=== PATIENT | male | born 1955 | race Caucasian/White ===

== ENCOUNTER 2019-07-13 09:56 | Inpatient (IN) ==
--- NOTE | 2019-06-07 15:52 | PAT Medication Instructions ---
Medication Instructions Date of Service June 07, 2019 Home Medications ascorbic acid (vitamin C) [Vitamin C] 1 g PO DAILY aspirin [Aspirin Low Dose] 81 mg PO QAM atorvastatin [Lipitor] 20 mg PO QAM coenzyme Q10 [CoQ-10] 100 mg PO DAILY hydrocodone-acetaminophen 1 tab PO BID PRN multivitamin 1 tab PO DAILY naproxen sodium [Aleve] 220 mg PO BID PRN omega 4-rpt-zpd-fish oil [Fish Oil] 1 cap PO DAILY tamsulosin [Flomax] 0.4 mg PO BID ASK your surgeon for instructions naproxen sodium [Aleve] 220 mg PO BID PRN ASK your prescriber and surgeon aspirin [Aspirin Low Dose] 81 mg PO QAM STOP taking 2 weeks before surgery (or as soon as possible if surgery is within 2 weeks) coenzyme Q10 [CoQ-10] 100 mg PO DAILY omega 8-txh-yit-fish oil [Fish Oil] 1 cap PO DAILY DO NOT take the morning of surgery ascorbic acid (vitamin C) [Vitamin C] 1 g PO DAILY multivitamin 1 tab PO DAILY Take morning of surgery With a small sip of water, OTHERWISE NOTHING TO EAT OR DRINK AFTER MIDNIGHT: atorvastatin [Lipitor] 20 mg PO QAM hydrocodone-acetaminophen 1 tab PO BID PRN (okay to take up to 4 hours prior to surgery if needed) tamsulosin [Flomax] 0.4 mg PO BID Take evening before surgery hydrocodone-acetaminophen 1 tab PO BID PRN (if needed) tamsulosin [Flomax] 0.4 mg PO BID Other Notes If you have any questions please call us at [phone] or [phone] or [phone] or [phone]
--- NOTE | 2019-06-08 08:09 | Anesthesiology Consultation ---
Date of Service June 08, 2019 Assessment & Plan (1) Encounter for pre-operative examination: - Awaiting review preop testing (labs, EKG, CXR). - Awaiting labs done 06/07 at [facility] ([facility]). Chart Review Chart Review: Pending: Refer to Additional Notes / Consult section (pending preop testing (labs, EKG, CXR)) and Patient seen in Pre Admission Testing Teaching & Discussion Pre-Anesthesia Teaching/Discussion Notes: Instructed NPO after midnight before surgery,except medications with 15 cc of water. Medication instructions pro vided according to the PAT guidelines. History Surgery Operation Date: 07/13/19 13:00 Proposed Procedures p Left Total Shoulder Arthroplasty - Ashkan Lara, Height/Weight Height: 6 ft Weight: 88.6 kg Allergies Allergy/AdvReac Type Severity Reaction Status Date / Time Penicillins Allergy Unknown rash - as Verified 06/06/19 12:20 a child Medications Home Medications Medication Instructions Recorded Confirmed Last Taken ascorbic acid (vitamin C) [Vitamin 1 g PO DAILY 06/06/19 06/06/19 Unknown C] aspirin [Aspirin Low Dose] 81 mg PO QAM 06/06/19 06/06/19 Unknown atorvastatin [Lipitor] 20 mg PO QAM 06/06/19 06/06/19 Unknown coenzyme Q10 [CoQ-10] 100 mg PO DAILY 06/06/19 06/06/19 Unknown hydrocodone-acetaminophen 1 tab PO BID PRN 06/06/19 06/06/19 Unknown multivitamin 1 tab PO DAILY 06/06/19 06/06/19 Unknown naproxen sodium [Aleve] 220 mg PO BID PRN 06/06/19 06/06/19 Unknown omega 5-ybb-hrd-fish oil [Fish Oil] 1 cap PO DAILY 06/06/19 06/06/19 Unknown tamsulosin [Flomax] 0.4 mg PO BID 06/06/19 06/06/19 Unknown Past Medical History Medical History BPH (benign prostatic hyperplasia) Diverticular disease Hyperlipidemia Osteoarthritis Exercise / Class Metabolic Activity II 4-5 Yardwork/Stairs/Walk up hill Past Family History Family History Other No pertinent family history Past Surgical History Surgical History History of surgical amputation of finger partial left fourth digit amputation History of colonoscopy History of tonsillectomy S/P inguinal hernia repair left Past Anesthesia History No Hx of Anesthesia Complications and No Family Hx of Anesthesia Complications History of PONV No Hx of PONV and No Hx of Motion Sickness Social History Smoking Status: Former smoker tobacco type: cigarettes Do You Dip or Chew Tobacco: No Smoking End Date: Quit 2008; hx 1ppd x 25 years Hx Alcohol Use: Yes Alcohol type: beer alcohol intake frequency: a few times a month Hx Substance Use: Yes (a couple times a month) substance use type: marijuana Last Used Substance: Days (ago) Last Used Substance Other:: 06/02/19 (recreational)- advised Review of Systems Patient denies chest pain, shortness of breath, dyspnea on exertion, reflux, cough, wheezing, palpitations. Physical Exam Vital Signs VITALS BP 138/77 P77 TEM 97.8P SP02 97%RA RESP 16 PHYSICAL Full neck and c-spine range of motion. Full TMJ range of motion. TMD 3 finger breaths Mallampati Score 3 Dentition: intact, upper front permanent bridge Lungs: clear throughout to auscultation Cardiac: regular rate and rhythm, no murmurs noted Spine: normal Carotid arteries: negative bruit Extremities: left forth digit amputation
--- NOTE | 2019-06-08 09:11 | XRay Report ---
XR chest Pre-admission PA/Lat HISTORY: 64 years-old Male pat preoperative exam. No acute chest complaints COMPARISON: None available TECHNIQUE: PA and lateral views of the chest FINDINGS: Cardiomediastinal and hilar silhouettes are within normal limits. There is no pneumothorax, pleural e ffusion, focal airspace consolidation or overt pulmonary edema. There is a cluster of at least 4 tria ngular radiodensities which project over the left upper lobe measuring up to 10 mm. Additionally, the re are a few nodular foci of the left lung base measuring up to 3 mm which may be secondary to summat ion density. Bones of the chest appear grossly intact. IMPRESSION: 1. No acute process. 2. Cluster of triangular radiodensities projecting over the left upper lung measuring up to 10 mm, po ssibly external to the patient. Correlate with prior imaging. The above report was generated using voice recognition software. It may contain grammatical, syntax o r spelling errors. Electronically signed by: Josias Montgomery M.D. 06/08/2019 9:10 AM
[2019-06-08 09:41] LABS: Basophils # (auto) 0.02 K/uL (0-0.2); Basophils % (auto) 0.4 %; Eosinophils # (auto) 0.12 K/uL (0-0.5); Eosinophils % (auto) 2.1 %; Hematocrit (blood only) 43.5 % (42-52); Hemoglobin 14.9 g/dL (14.0-18.0); Immature Granulocytes # (auto) 0.01 K/uL (0.00-0.02); Immature Granulocytes % (auto) 0.2 %; Lymphocytes % (auto) 40.9 %; Mean Corpuscular Hemoglobin 29.4 pg (25-34); Mean Corpuscular Hgb Conc 34.3 g/dL (32-36); Mean Platelet Volume 10.5 fL (7.4-10.4); Monocytes # (auto) 0.48 K/uL (0.11-0.59); Monocytes % (auto) 8.5 %; Neutrophils % (auto) 47.9 %; Platelet Count 217 K/uL (130-400); RDW Coefficient of Variation 14.1 % (11.5-14.5); RDW Standard Deviation 43.7 fL (36.4-46.3); Red Blood Count 5.06 M/uL (4.7-6.1); White Blood Count 5.63 K/uL (4.8-10.8)
[2019-06-08 09:55] LABS: Partial Thromboplastin Time 27.7 Seconds (21.0-31.0); Prothrombin Time 10.6 Seconds (9.0-12.0)
--- NOTE | 2019-07-12 14:50 | History & Physical Report ---
Date of Service July 12, 2019 Assessment & Plan (1) Osteoarthritis of left shoulder: We will proceed with a left total shoulder arthroplasty. Postoperatively he will be placed in a sling and kept overnight for postoperative medical management. He has not chosen where he would like to go to physical therapy yet. Present on Admission?: Yes History of Present Illness Chief Complaint: Primary osteoarthritis of the left shoulder Primary Care Provider: Cathy Ingram is a pleasant 64-year-old male who is been having a several year history of increasing bilateral shoulder pain. His left is worse than his right. X- rays and clinical examination have been diagnostic for primary osteoarthritis of both shoulders. After failing conservative treatment, he has elected to proceed with a left total shoulder arthroplasty. Allergies Allergy/AdvReac Type Severity Reaction Status Date / Time Penicillins Allergy Unknown rash - as Verified 06/06/19 12:20 a child Home Medications Home Medications Medication Instructions Recorded Confirmed Type ascorbic acid (vitamin C) [Vitamin 1 g PO DAILY 06/06/19 06/06/19 History C] aspirin [Aspirin Low Dose] 81 mg PO QAM 06/06/19 06/06/19 History atorvastatin [Lipitor] 20 mg PO QAM 06/06/19 06/06/19 History coenzyme Q10 [CoQ-10] 100 mg PO DAILY 06/06/19 06/06/19 History hydrocodone-acetaminophen 1 tab PO BID PRN 06/06/19 06/06/19 History multivitamin 1 tab PO DAILY 06/06/19 06/06/19 History naproxen sodium [Aleve] 220 mg PO BID PRN 06/06/19 06/06/19 History omega 1-csv-muu-fish oil [Fish Oil] 1 cap PO DAILY 06/06/19 06/06/19 History tamsulosin [Flomax] 0.4 mg PO BID 06/06/19 06/06/19 History Past Med/Surg History Medical History (Updated 07/12/19 @ 14:50 by Ashkan Lara DO) BPH (benign prostatic hyperplasia) Diverticular disease Hyperlipidemia Osteoarthritis Surgical History (Updated 06/08/19 @ 08:21 by Jeni Sanchez) History of colonoscopy History of surgical amputation of finger partial left fourth digit amputation History of tonsillectomy S/P inguinal hernia repair left Family History Other No pertinent family history Social History Preferred Language: Kazakh Ride Operator Required: No Beliefs That Will Affect Care: None Current Living Situation: Spouse Feels Safe at Home: Yes Smoking Status: Former smoker Tobacco Type: cigarettes ; Second Hand Exposure: Yes (as a child) ; Hx Alcohol Use: Yes Alcohol type: beer Hx Substance Use: Yes (a couple times a month) substance use type: marijuana Last Used Substance: Days (ago) Review of Systems All systems reviewed & are unremarkable except as noted in HPI & below Physical Exam Constitutional: WD/WN, vitals as above Eyes: PERRL, conjunctivae normal, anicteric sclerae ENMT: external ear and nose normal, oropharynx normal Neck: trachea midline, no thyromegaly Respiratory: normal respiratory effort Cardiovascular: RRR, no murmur, no edema Gastrointestinal (Abdomen): normal bowel sounds, soft, nontender, no hepatosplenomegaly Musculoskeletal: Physical examination of the left shoulder reveals decreased range of motion and crepitis throughout. There is good strength with full can testing and external rotation. There is tenderness palpation along the anterior glenohumeral joint line. The right upper extremity is neurovascularly intact. Psychiatric: A+Ox3, euthymic affect Results & Data Diagnostic Findings Radiographs of the left shoulder show osteoarthritis of the glenohumeral joint. There is joint space narrowing, osteophyte formation, and [id number] articulation.
[~2019-07-13 09:56] MED LIST: ACETAMINOPHEN 500 MG TAB PO SCH; BUPIVACAINE 0.5 % 5 MG/1 ML PF 10ML VIAL ONE; CEFAZOLIN 2000MG 2,000 MG/15 ML SYR IV SCH; DEXAMETHASONE SOD INJ 4 MG/ML VIAL ONE; FAMOTIDINE 20 MG TAB PO SCH; GABAPENTIN 300 MG CAP PO SCH; GLYCOPYRROLATE 0.2 MG/ML VIAL ONE; LR 15ML/HR IV SCH; LR 60ML/HR IV SCH; MIDAZOLAM HCL 1 MG/ML 2ML VIAL ONE; NEOSTIGMINE METHYLSULFATE 5 MG/5 ML SYR ONE; ONDANSETRON INJ 2 MG/ML 2 ML VIAL ONE; PROPOFOL IV EMULSION 10 MG/ML 20 ML VIAL IV ONE; ROPIVACAINE 0.5% 5 MG/ML 30 ML VIAL ONE; ROPIVACAINE 0.5% HCL/PF 150 MG, BUPIVACAINE 0.5% MPF 30 ML, EPINEPHrine 30MG/30ML (OR U... INSTIL SCH; TRANEXAMIC ACID 1,000 MG **IV Intra-op IV SCH; TRANEXAMIC ACID 1,000 MG **IV Pre-op IV SCH; fentaNYL citrate 100 MCG/2 ML VIAL ONE
[2019-07-13] MEDS ORDERED: ORTHO JOINT ANESTHETIC ONE (10:43)
--- NOTE | 2019-07-13 10:45 | History & Physical Bridge Note ---
Date of Service July 13, 2019 History & Physical Bridge Note I have examined the patient, reviewed the History & Physical and in the interval since the performance of the History & Physical I have noted the following changes of clinical significance: no changes noted
[2019-07-13] MEDS ORDERED: ATROPINE SULFATE 0.1 MG/ML 10ML SYR IV PRN (10:57)
[2019-07-13] MEDS ORDERED: fentaNYL citrate 100 MCG/2 ML VIAL IV PRN (10:57)
[2019-07-13] MEDS ORDERED: ONDANSETRON INJ 2 MG/ML 2 ML VIAL IV PRN ×2 (10:57→14:37)
[2019-07-13] MEDS ORDERED: ePHEDrine sulfate 50 MG/ML AMP IV PRN (10:57)
[2019-07-13] MEDS ORDERED: DEXAMETHASONE SOD INJ 4 MG/ML VIAL ONE (12:13)
[2019-07-13] MEDS ORDERED: ROCURONIUM BROMIDE 10 MG/ML 5 ML VIAL ONE (12:21)
[2019-07-13] MEDS ORDERED: fentaNYL citrate 100 MCG/2 ML VIAL ONE (12:40)
[2019-07-13] MEDS ORDERED: PHENYLEPHRINE 100MCG/ML 5ML SYR ONE (12:44)
--- NOTE | 2019-07-13 13:00 | Operative Report ---
PG Post Operative Report Pre & Post Diagnosis Operation Date: 07/13/19 12:10 Pre-Op Diagnosis: Left Shoulder Degenerative Joint Disease Post-Op Diagnosis: Left Shoulder Degenerative Joint Disease I identified the patient and participated in the time-out.: Yes Procedure Operation Date: 07/13/19 12:10 Actual Procedures p Left Total Shoulder Arthroplasty, Cemented(Left) - Ashkan Lara DO Surgeon Ashkan Lara DO Sider Mechanic Ashkan Flores PAC Estimated Blood Loss 250 Findings Consistent with Post-Op Diagnosis Specimens Left humeral head Complications none Disposition Disposition: Recovery Room Indications Juan Jose is a 64-year-old male who presented my office with chronic increasing left shoulder pain. X-rays and clinical examination were diagnostic for primary osteoarthritis of the left shoulder. After failing conservative treatment, he elected to proceed with a left total shoulder arthroplasty. Description of Procedure Implants used: I used a Biomet Comprehensive total shoulder arthroplasty system with a size 12 press fit mini humeral stem, a size 46 x 21 eccentric humeral head, and a medium size glenoid with a Regenerex peg. The glenoid was cemented in place with Palacos G cement. The patient arrived at [facility] for the above procedure. There were seen in the preoperative holding area and the operative extremity was identified and signed. They were given a preoperative antibiotic and an interscalene nerve block. They were taken back to the operating room, laid on table in supine position, and put under general anesthesia. They were then put into the beachchair position. The shoulder was then prepped and draped in sterile fashion. A timeout was done and the patient and the operative extremity was properly identified. A deltopectoral approach was used. Dissection was taken down through the fascia and the deltoid was retracted laterally and the conjoined tendon was retracted medially. The anterior shoulder was exposed. The long head of the biceps tendon was tenodesed to the upper border of the pectoralis major. The subscapularis was then released off the lesser tuberosity with a centimeter of cuff tissue remaining. The inferior capsule was released and the humeral head was dislocated. The rotator cuff was inspected and intact. A canal finding reamer was sent down the center of the humeral canal. Sequential reaming up to a size 12 reamer was done. Offset reamer a proximal humeral resection guide was placed. The proximal humerus was resected at 135 of inclination and 30 of retroversion. Inferior osteophytes were then removed and the glenoid was exposed. Time was spent doing an appropriate labral release. A [employer] signature guide was then attached onto the anterior rim of the glenoid. A 3.2 mm Steinmann pin was then placed in the total shoulder arthroplasty hole. The glenoid was then reamed with a propeller reamer. The central post cutter was then used to prepare for the central boss. The cannulated peripheral peg drill guide was then placed and 3 peg holes were drilled. The final size medium glenoid was then cemented in place with Palacos G cement. Surrounding soft tissues were then injected with 100 cc of an orthopedic pain control cocktail. Once cement had dried the proximal humerus was once again exposed. Sequential broaching of the humerus up to a size 12 broach was done. Off that broach a size 46 x 21 eccentric humeral head was trialed. The shoulder was then reduced, brought through a full range of motion and felt to be stable. The shoulder was then dislocated and the broach was removed. The final size 12 mini humeral stem implant was then impacted into place. A size 46 x 21 eccentric humeral head was then impacted onto the humeral stem. The shoulder was then reduced and once again brought through a full range of motion and felt to be stable. The subscapularis was then tenodesed back to the lesser tuberosity with transosseous FiberWire sutures and side to side sutures with the arm in 45 of external rotation. 2 sutures were placed in the lateral rotator interval. A dilute betadyne lavage was then done for 3 minutes. The joint was then irrigated with normal saline solution. Hemostasis was obtained. The skin was then closed with 2-0 Vicryl, 3-0V lock suture, and joanna. A soft dressing was placed as well as a regular arm sling. The patient was then extubated and transferred to a hospital bed. There were taken to the postanesthesia care unit in stable condition. The tolerated the procedure well. I attest to the content of the Intraoperative Record and any orders documented therein. Any exceptions are noted below.
[2019-07-13] MEDS ORDERED: PROPOFOL IV EMULSION 10 MG/ML 20 ML VIAL IV ONE (13:26)
--- NOTE | 2019-07-13 13:58 | Anesthesiology Progress Note ---
Date of Service July 13, 2019 Anesthesia Post Procedure Vital Signs Vital Signs: Temp Pulse Pulse Resp BP Pulse Ox 07/13/19 13:55 97.9 F 69 21 122/69 95 07/13/19 13:45 66 22 114/71 100 07/13/19 13:35 67 19 127/73 99 07/13/19 13:29 96.8 F L 78 22 130/71 96 07/13/19 10:20 98.4 F 77 20 183/99 H 96 Transfer of Care Handoff Completed per policy Notes Mental Status: alert / awake / arousable and participated in evaluation Patient Amnestic to Procedure: Yes Nausea / Vomiting: adequately controlled Pain: adequately controlled Airway Patency, RR, SpO2: stable & adequate BP & HR: stable & adequate Hydration State: stable & adequate Anesthetic Complications: no major complications apparent and Pt Satisfied with anesthetic care
--- NOTE | 2019-07-13 14:16 | XRay Report ---
XR shoulder LT min 2V routine CLINICAL HISTORY: 64 years-old Male presenting with Post shoulder surgery. TECHNIQUE: Frontal and lateral views of the left shoulder were obtained. COMPARISON: None. FINDINGS: Post-surgical changes of left shoulder arthroplasty. Expected soft tissue emphysema and skin joanna in place. Acromioclavicular joint intact. No acute fracture or malalignment. Few bandlike opacities a t the left lung base. IMPRESSION: 1. Expected post-surgical changes of left shoulder arthroplasty. 2. Left basilar atelectasis or scarring. Electronically signed by: Fernando Gracia M.D. 07/13/2019 2:14 PM
[2019-07-13] MEDS ORDERED: HYDROmorphone INJ 0.5 MG/0.5 ML SYR IV PRN (14:37)
[2019-07-13] MEDS ORDERED: MAGNESIUM HYDROXIDE SUSP 30 ML UDC PO PRN (14:37)
[2019-07-13] MEDS ORDERED: OXYCODONE HCL IR 5 MG TAB (IMMEDIATE RELEASE) PO PRN (14:37)
[2019-07-13] MEDS ORDERED: NALOXONE HCL 0.4 MG/1 ML VIAL/CARP IV PRN (14:37)
[2019-07-13] MEDS ORDERED: BISACODYL 10 MG SUPP PR PRN (14:37)
[2019-07-13] MEDS ORDERED: METOCLOPRAMIDE HCL INJ 5 MG/ML 2 ML VIAL IV PRN (14:37)
[2019-07-13] MEDS: SODIUM CHLORIDE 0.9% 1000ML 1,000 ML IV SCH (15:39)
[2019-07-13] MEDS: ACETAMINOPHEN 500 MG TAB PO SCH ×2 (15:44→21:59)
[2019-07-13] MEDS: KETOROLAC TROMETHAMINE 15 MG/ML VIAL IV SCH ×3 (15:44→23:53)
[2019-07-13] MEDS: CEFAZOLIN 2000MG 2,000 MG/15 ML SYR IV SCH (18:46)
[2019-07-13] MEDS: TAMSULOSIN HCL 0.4 MG CAP PO SCH (20:44)
[2019-07-13] MEDS: DOCUSATE SODIUM 100 MG CAP PO SCH (20:44)
[2019-07-13] MEDS ORDERED: SENNA 8.6 MG TAB PO SCH (21:00)
[2019-07-14] MEDS: SODIUM CHLORIDE 0.9% 1000ML 1,000 ML IV SCH (01:22)
[2019-07-14] MEDS: CEFAZOLIN 2000MG 2,000 MG/15 ML SYR IV SCH (03:57)
[2019-07-14] MEDS: ACETAMINOPHEN 500 MG TAB PO SCH (05:33)
[2019-07-14] MEDS: KETOROLAC TROMETHAMINE 15 MG/ML VIAL IV SCH (05:33)
[2019-07-14 05:51] LABS: Eosinophils # (auto) 0.02 K/uL (0-0.5); Eosinophils % (auto) 0.2 %; Hematocrit (blood only) 37.5 % (42-52); Hemoglobin 12.8 g/dL (14.0-18.0); Immature Granulocytes # (auto) 0.02 K/uL (0.00-0.02); Immature Granulocytes % (auto) 0.2 %; Lymphocytes # (auto) 1.75 K/uL (1.2-3.4); Lymphocytes % (auto) 16.1 %; Mean Corpuscular Hgb Conc 34.1 g/dL (32-36); Mean Platelet Volume 10.2 fL (7.4-10.4); Monocytes % (auto) 14.7 %; Neutrophils # (auto) 7.48 K/uL (1.4-6.5); Neutrophils % (auto) 68.8 %; Platelet Count 194 K/uL (130-400); RDW Standard Deviation 43.6 fL (36.4-46.3); Red Blood Count 4.41 M/uL (4.7-6.1); White Blood Count 10.87 K/uL (4.8-10.8)
[2019-07-14 06:21] LABS: BUN Creatinine Ratio 16.9 (10-20); Calcium 8.8 mg/dl (8.5-10.1); Creatinine Clr Calc Pharmacy 81.4 ml/min; Est GFR (African American) 92.7; Potassium 4.3 mmol/L (3.5-5.1)
[2019-07-14] MEDS: DOCUSATE SODIUM 100 MG CAP PO SCH (08:28)
[2019-07-14] MEDS: TAMSULOSIN HCL 0.4 MG CAP PO SCH (08:28)
--- NOTE | 2019-07-14 08:43 | Orthopedic Progress Note ---
Date of Service July 14, 2019 Assessment & Plan (1) History of left shoulder replacement: Overall he is doing very well. Is not having much pain in the left shoulder. He will be seen by physical therapy today for ambulation and range of motion exercises. He can be discharged home later this morning. He will follow-up with orthopedics in 2 weeks. Present on Admission?: Yes Subjective Juan Jose was seen and examined at bedside this morning. Overall is doing very well. Is not having any pain in his left shoulder. He has no complaints. Physical Exam Musculoskeletal: On physical examination of the left shoulder, the dressing is clean and dry. His radial, median, and ulnar nerves are checked and intact his wrist. His axillary nerve is not checked yet. He is wearing a sling as instructed. Results & Data Vital Signs (Past 12 Hours) Vital Signs Temp Pulse Resp BP Pulse Ox 07/14/19 07:14 36.6 C 71 18 152/84 H 97 07/14/19 03:45 73 143/82 H 07/14/19 03:14 36.6 C 84 16 159/93 H 97 07/13/19 23:08 36.4 C L 70 16 136/78 97 Laboratory Results H & H 06/08/19 07/14/19 Range/Units 08:31 05:15 Hgb 14.9 12.8 L (14.0-18.0) g/dL Hct 43.5 37.5 L (42-52) % Coagulation 06/08/19 Range/Units 08:31 INR 1.0 (0.9-1.1) Diagnostic Findings Postoperative x-rays of the left shoulder show the prosthesis to be in anatomic alignment without any evidence of fracture, dislocation, or loosening. PG Care Time/CCT Total # of Minutes Spent Total Time Spent with Patient: Total time spent is greater than 50% in coordinat ion of care (as documented) at patient's floor/unit and/or counseling patient:
--- NOTE | 2019-07-14 08:44 | Discharge Summary ---
Date of Service July 14, 2019 Admission HPI Per Admitting Provider Juan Jose is a pleasant 64-year-old male who is been having a several year history of increasing bilateral shoulder pain. His left is worse than his right. X- rays and clinical examination have been diagnostic for primary osteoarthritis of both shoulders. After failing conservative treatment, he has elected to proceed with a left total shoulder arthroplasty. Principal Diagnosis Left total shoulder arthroplasty Discharge Data Allergies Allergy/AdvReac Type Severity Reaction Status Date / Time Penicillins Allergy Unknown rash - as Verified 06/06/19 12:20 a child Consultations 07/13/19 14:37 Consult Case Management - Discharge Planning Routine Procedures Performed Operation Date: 07/13/19 12:10 Actual Procedures p Left Total Shoulder Arthroplasty, Cemented(Left) - Ashkan Lara DO Ordered Studies 07/13/19 05:00 US - OR guided needle placemen Routine Hospital Course (1) History of left shoulder replacement: On July 13, [address] [facility] and underwent a left total shoulder arthroplasty without complication. He had a general anesthetic and a left interscalene nerve block. Postoperatively he was placed in an arm sling and discharged to general orthopedic floors. His hospital course is uneventful. On postop day #1 his H&H was stable and his pain was well controlled. He was able to participate well with physical therapy doi ng ambulation and range of motion exercises. He was then discharged home. He will follow-up with orthopedics in 2 weeks. Total Time Total Time Spent Total Time Spent (In Minutes): 20 Discharge Plan Discharge Items Reason For Visit: Left Shoulder Degenerative Joint Disease Medications and DC Order Prescriptions: No Action multivitamin Tablet 1 tab PO DAILY RF: 0 ascorbic acid (vitamin C) [Vitamin C] 1,000 mg Tablet 1 g PO DAILY RF: 0 atorvastatin [Lipitor] 20 mg Tablet 20 mg PO QAM RF: 0 hydrocodone-acetaminophen 5-325 mg Tablet 1 tab PO BID PRN (Reason: Pain) RF: 0 aspirin [Aspirin Low Dose] 81 mg Tablet,Delayed Release (Dr/Ec) 81 mg PO QAM RF: 0 tamsulosin [Flomax] 0.4 mg Capsule 0.4 mg PO BID RF: 0 naproxen sodium [Aleve] 220 mg Tablet 220 mg PO BID PRN (Reason: Pain) RF: 0 coenzyme Q10 [CoQ-10] 100 mg Capsule 100 mg PO DAILY RF: 0 omega 2-spn-rws-fish oil [Fish Oil] 1,000 mg (120 mg-180 mg) Capsule 1 cap PO DAILY RF: 0 Admission Data Admit Date/Time: 07/13/19 13:30 Attending Provider: Ashkan Lara Admit Provider: Ashkan Lara Primary Care Provider: Cathy Oh
[2019-07-14] MEDS ORDERED: OMEGA-3 (PURIFIED FISH OIL) 1 GM CAP PO SCH (09:00)
[2019-07-14] MEDS ORDERED: ATORVASTATIN 20 MG TAB PO SCH (09:00)
[2019-07-14] MEDS ORDERED: MULTIVITAMIN TAB PO SCH (09:00)
== END 2019-07-14 10:51 | disposition home or self-care (01) | DRG 483 ==
LOC: ASU 09:56 → 3E 13:30

== ENCOUNTER 2020-03-24 09:24 | Inpatient (IN) ==
--- NOTE | 2020-02-18 13:26 | PAT Medication Instructions ---
Medication Instructions Date of Service February 18, 2020 Home Medications ascorbic acid (vitamin C) [Vitamin C] 1 g PO QAM aspirin [Aspirin Low Dose] 81 mg PO QAM atorvastatin [Lipitor] 20 mg PO QAM coenzyme Q10 [CoQ-10] 100 mg PO QAM multivitamin 1 tab PO QAM naproxen sodium [Aleve] 220 mg PO BID PRN omega 2-gom-jzf-fish oil [Fish Oil] 1 cap PO QAM tamsulosin [Flomax] 0.4 mg PO BID ASK your surgeon for instructions naproxen sodium [Aleve] 220 mg PO BID PRN STOP taking 2 weeks before surgery omega 7-pmu-qcq-fish oil [Fish Oil] 1 cap PO QAM coenzyme Q10 [CoQ-10] 100 mg PO QAM DO NOT take the morning of surgery multivitamin 1 tab PO QAM ascorbic acid (vitamin C) [Vitamin C] 1 g PO QAM Take morning of surgery With a small sip of water, OTHERWISE NOTHING TO EAT OR DRINK AFTER MIDNIGHT: tamsulosin [Flomax] 0.4 mg PO BID aspirin [Aspirin Low Dose] 81 mg PO QAM atorvastatin [Lipitor] 20 mg PO QAM Take evening before surgery tamsulosin [Flomax] 0.4 mg PO BID Other Notes If you have any questions please call us at [phone] or [phone] or [phone] or [phone]
--- NOTE | 2020-02-20 11:12 | Anesthesiology Consultation ---
Date of Service February 20, 2020 Assessment & Plan (1) Encounter for pre-operative examination: COVID Status: As of 02/19 assessment, patient denies travel to endemic area, known exposure/sick contacts, or symptoms of COVID19. Patient instructed to follow strict social distancing guidelines, wear a mask in public and avoid travel for 14 days prior to surgery. Preoperative COVID19 testing to be completed prior to surgery. Patient made aware to self-isolate as much as possible between COVID testing and surgery. S/P L TSA 07/13/19 = MAC #4, ETT 8.0. IV induction, EZ MV with OPA. DL x 1 grade 2 view. Atraumatic. Chart Review Chart Review: Acceptable Risk for Surgery and Patient seen in Pre Admission Testing Teaching & Discussion Instructed NPO after midnight before surgery, except medications with 15 cc of water. Medication instructions provided according to the PAT guidelines. History Surgery Operation Date: 03/24/20 09:20 Proposed Procedures p Right Total Shoulder Arthroplasty - Ashkan Lara, DO Height/Weight Height: 6 ft Weight: 91.7 kg Allergies Allergy/AdvReac Type Severity Reaction Status Date / Time Penicillins Allergy Unknown HIVES - as Verified 02/14/20 13:29 a child Medications Home Medications Medication Instructions Recorded Confirmed Last Taken ascorbic acid (vitamin C) [Vitamin 1 g PO QAM 06/06/19 02/14/20 07/12/19 06:00 C] aspirin [Aspirin Low Dose] 81 mg PO QAM 06/06/19 02/14/20 07/12/19 06:00 atorvastatin [Lipitor] 20 mg PO QAM 06/06/19 02/14/20 07/02/19 09:00 coenzyme Q10 [CoQ-10] 100 mg PO QAM 06/06/19 02/14/20 07/02/19 09:00 multivitamin 1 tab PO QAM 06/06/19 02/14/20 07/12/19 06:00 naproxen sodium [Aleve] 220 mg PO BID PRN 06/06/19 02/14/20 06/29/19 06:00 omega 2-ojc-lul-fish oil [Fish Oil] 1 cap PO QAM 06/06/19 02/14/20 07/02/19 09:00 tamsulosin [Flomax] 0.4 mg PO BID 06/06/19 02/14/20 07/12/19 18:00 Past Medical History Medical History BPH (benign prostatic hyperplasia) Diverticular disease h/o single episode of diverticulitis, tx with ABX Hyperlipidemia Osteoarthritis Exercise / Class Metabolic Activity II 4-5 Yardwork/Stairs/Walk up hill (Denies CP or SOB with 1 FOS) Past Family History Family History Other No pertinent family history Past Surgical History Surgical History History of colonoscopy History of left shoulder replacement (~06/2019) 06/2019 @ [facility]. No issues noted on record. History of surgical amputation of finger partial left fourth digit amputation History of tonsillectomy S/P inguinal hernia repair left [place] teeth removed Past Anesthesia History No Hx of Anesthesia Complications and No Family Hx of Anesthesia Complications History of PONV No Hx of PONV and No Hx of Motion Sickness Social History Smoking Status: Former smoker tobacco type: cigarettes Do You Dip or Chew Tobacco: No Smoking End Date: OVER 10 YEARS AGO Hx Alcohol Use: Yes Alcohol type: beer alcohol intake frequency: a few times a month Hx Substance Use: Yes substance use type: marijuana Last Used Substance: Days (ago) Last Used Substance Other:: 1-2 WEEKS AGO (ADVISED) Review of Systems Pt denies any recent chest pain, shortness of breath, palpitations, cough, fever or URI. Physical Exam Vital Signs BP: 137/77 P: 72bpm SPO2: 97% RA T: 98.3 F R: 16 ENMT Mouth: + dental bridge; no chipped teeth and no loose teeth Thyromental Distance: < 3.5 Finger Breadths (3) Mallampati Class: I Mouth / Teeth: 1. 3 teeth bridge Neck normal visual inspection and + facial hair (very short mustache); neck extension not limited Respiratory normal respiratory effort Auscultation: lungs clear to auscultation bilaterally Cardiovascular Rate/Rhythm: regular rate and regular rhythm Heart Sounds: no murmur Vessels: no carotid bruit Extremities: no edema Testing Laboratory Results 02/20/20 11:14 02/20/20 11:14 PT 10.5 Seconds (9.0-12.0) 02/20/20 11:14 INR 1.0 (0.9-1.1) 02/20/20 11:14 APTT 29.1 Seconds (21.0-31.0) 02/20/20 11:14 Blood Type A Positive 02/20/20 11:14 Antibody Screen NEGATIVE 02/20/20 11:14 Electrocardiogram Date: 06/08/19 Findings: + NSR @ (69bpm) iRBBB. NS ST and TWA. Prolonged QT. Chest X-Ray Date: 06/08/19 FINDINGS: Cardiomediastinal and hilar silhouettes are within normal limits. There is no pneumothorax, pleural effusion, focal airspace consolidation or overt pulmonary edema. There is a cluster of at least 4 triangular radiodensities which project over the left upper lobe measuring up to 10 mm. Additionally, there are a few nodular foci of the left lung base measuring up to 3 mm which may be secondary to summation density. Bones of the chest appear grossly intact. IMPRESSION: 1. No acute process. 2. Cluster of triangular radiodensities projecting over the left upper lung measuring up to 10 mm, possibly external to the patient. Correlate with prior imaging.
[2020-02-20 12:32] LABS: Basophils # (auto) 0.01 K/uL (0-0.2); Basophils % (auto) 0.2 %; Eosinophils % (auto) 1.5 %; Hematocrit (blood only) 40.2 % (42-52); Hemoglobin 13.3 g/dL (14.0-18.0); Lymphocytes # (auto) 2.01 K/uL (1.2-3.4); Lymphocytes % (auto) 30.5 %; Mean Corpuscular Hemoglobin 28.2 pg (25-34); Mean Corpuscular Hgb Conc 33.1 g/dL (32-36); Mean Corpuscular Volume 85.2 fL (80-100); Mean Platelet Volume 10.1 fL (7.4-10.4); Monocytes # (auto) 0.83 K/uL (0.11-0.59); Monocytes % (auto) 12.6 %; Neutrophils # (auto) 3.64 K/uL (1.4-6.5); Neutrophils % (auto) 55.2 %; Platelet Count 247 K/uL (130-400); RDW Coefficient of Variation 14.3 % (11.5-14.5); RDW Standard Deviation 44.4 fL (36.4-46.3); Red Blood Count 4.72 M/uL (4.7-6.1); White Blood Count 6.59 K/uL (4.8-10.8)
[2020-02-20 12:42] LABS: BUN Creatinine Ratio 19.1 (10-20); Calcium 8.9 mg/dl (8.5-10.1); Creatinine Clr Calc Pharmacy 93.8 ml/min; Est GFR (African American) 105.2; Est GFR (Non-African American) 90.8; Potassium 3.9 mmol/L (3.5-5.1)
[2020-02-20 12:47] LABS: Partial Thromboplastin Time 29.1 Seconds (21.0-31.0); Prothrombin Time 10.5 Seconds (9.0-12.0)
--- NOTE | 2020-03-20 08:03 | History & Physical Report ---
Date of Service March 20, 2020 Assessment & Plan (1) Osteoarthritis of right shoulder: We will proceed with a right total shoulder arthroplasty. Postoperatively he will be placed in a sling and kept overnight in the hospital for postop medical management. He plans to use [facility] upon discharge. Present on Admission?: Yes History of Present Illness Chief Complaint: Primary osteoarthritis of the right shoulder Primary Care Provider: Cathy Ingram is a pleasant 64-year-old male who I did a left shoulder replacement on 6 months ago. He has done very well with that. Unfortunately he is dealing with right shoulder pain. X-rays and clinical examination have been diagnostic for advanced osteoarthritis of the right shoulder. After failing conservative treatment, he has elected proceed with a right total shoulder arthroplasty. Allergies Allergy/AdvReac Type Severity Reaction Status Date / Time Penicillins Allergy Unknown HIVES - as Verified 02/14/20 13:29 a child Home Medications Home Medications Medication Instructions Recorded Confirmed Type ascorbic acid (vitamin C) [Vitamin 1 g PO QAM 06/06/19 02/14/20 History C] aspirin [Aspirin Low Dose] 81 mg PO QAM 06/06/19 02/14/20 History atorvastatin [Lipitor] 20 mg PO QAM 06/06/19 02/14/20 History coenzyme Q10 [CoQ-10] 100 mg PO QAM 06/06/19 02/14/20 History multivitamin 1 tab PO QAM 06/06/19 02/14/20 History naproxen sodium [Aleve] 220 mg PO BID PRN 06/06/19 02/14/20 History omega 3-tks-lua-fish oil [Fish Oil] 1 cap PO QAM 06/06/19 02/14/20 History tamsulosin [Flomax] 0.4 mg PO BID 06/06/19 02/14/20 History Past Med/Surg History Medical History BPH (benign prostatic hyperplasia) Diverticular disease h/o single episode of diverticulitis, tx with ABX Hyperlipidemia Osteoarthritis Surgical History History of colonoscopy History of left shoulder replacement (~06/2019) 06/2019 @ [facility]. No issues noted on record. History of surgical amputation of finger partial left fourth digit amputation History of tonsillectomy S/P inguinal hernia repair left [place] teeth removed Family History Other No pertinent family history Social History Smoking Status: Former smoker Second Hand Exposure: Yes ( A CHILD); Hx Alcohol Use: Yes Alcohol type: beer Hx Substance Use: Yes Last Used Substance: Days (ago) Last Used Substance Other:: 1-2 WEEKS AGO (ADVISED) Preferred Language: [place] Communication Ability: Effective Institutional Cook Required: No Beliefs That Will Affect Care: None Current Living Situation: Spouse Feels Safe at Home: Yes Review of Systems Review of Systems: All systems reviewed & are unremarkable except as noted in HPI & below Physical Exam Constitutional: WD/WN, vitals as above Eyes: PERRL, conjunctivae normal, anicteric sclerae ENMT: external ear and nose normal, oropharynx normal Neck: trachea midline, no thyromegaly Respiratory: normal respiratory effort Cardiovascular: RRR, no murmur, no edema Gastrointestinal (Abdomen): normal bowel sounds, soft, nontender, no he patosplenomegaly Musculoskeletal: Physical examination of the right shoulder reveals decreased range of motion and crepitis throughout. There is good strength with full can testing and external rotation. There is tenderness palpation along the anterior glenohumeral joint line. The right upper extremity is neurovascularly intact. Psychiatric: A+Ox3, euthymic affect Results & Data Results & Data ([facility]) Diagnostic Findings Radiographs of the right shoulder show osteoarthritis of the glenohumeral joint. There is joint space narrowing, osteophyte formation, and [id number]-mx-zfmq articulation. PG Care Time/CCT Total # of Minutes Spent Total Time Spent with Patient: Total time spent is greater than 50% in coordination of care (as documented) at patient's floor/unit and/or counseling patient: Coding Level of Care Code 63623 Initial Inpt Care Lvl 3 Diagnoses Osteoarthritis of right shoulder M19.011
[~2020-03-24 09:24] MED LIST changes: -DEXAMETHASONE SOD INJ 4 MG/ML VIAL ONE; -GLYCOPYRROLATE 0.2 MG/ML VIAL ONE; -MIDAZOLAM HCL 1 MG/ML 2ML VIAL ONE; -NEOSTIGMINE METHYLSULFATE 5 MG/5 ML SYR ONE; -ONDANSETRON INJ 2 MG/ML 2 ML VIAL ONE; -PROPOFOL IV EMULSION 10 MG/ML 20 ML VIAL IV ONE; -ROPIVACAINE 0.5% 5 MG/ML 30 ML VIAL ONE; +dexAMETHasone 4 MG TAB PO SCH; -fentaNYL citrate 100 MCG/2 ML VIAL ONE
--- NOTE | 2020-03-24 10:19 | History & Physical Bridge Note ---
Date of Service March 24, 2020 History & Physical Bridge Note I have examined the patient, reviewed the History & Physical and in the interval since the performance of the History & Physical I have noted the following changes of clinical significance: no changes noted
[2020-03-24] MEDS ORDERED: HYDROmorphone INJ 2 MG/ML SYR/VIAL IV PRN (11:03)
[2020-03-24] MEDS ORDERED: ATROPINE SULFATE 0.1 MG/ML 10ML SYR IV PRN (11:03)
[2020-03-24] MEDS ORDERED: ePHEDrine sulfate 50 MG/ML AMP IV PRN (11:03)
[2020-03-24] MEDS ORDERED: ORTHO JOINT ANESTHETIC ONE (11:03)
[2020-03-24] MEDS ORDERED: fentaNYL citrate 100 MCG/2 ML VIAL IV PRN (11:03)
[2020-03-24] MEDS ORDERED: ONDANSETRON INJ 2 MG/ML 2 ML VIAL IV PRN ×2 (11:03→15:25)
[2020-03-24] MEDS ORDERED: MIDAZOLAM HCL 1 MG/ML 2ML VIAL ONE (11:12)
[2020-03-24] MEDS ORDERED: fentaNYL citrate 100 MCG/2 ML VIAL ONE (11:12)
[2020-03-24] MEDS ORDERED: PROPOFOL IV EMULSION 10 MG/ML 20 ML VIAL IV ONE (11:12)
[2020-03-24] MEDS ORDERED: LIDOCAINE HCL 2% 2 ML VIAL/AMP(20MG/ML) INFIL ONE (11:12)
[2020-03-24] MEDS ORDERED: ONDANSETRON INJ 2 MG/ML 2 ML VIAL ONE (11:12)
[2020-03-24] MEDS ORDERED: ROCURONIUM BROMIDE 10 MG/ML 5 ML VIAL IV ONE ×4 (11:12→13:27)
[2020-03-24] MEDS ORDERED: GLYCOPYRROLATE 0.2 MG/ML VIAL ONE (13:27)
[2020-03-24] MEDS ORDERED: NEOSTIGMINE METHYLSULFATE 5 MG/5 ML SYR ONE (13:27)
--- NOTE | 2020-03-24 14:25 | XRay Report ---
XR shoulder RT min 2V routine CLINICAL HISTORY: Post shoulder surgery COMPARISON: CT scan dated 02/20/2020 DISCUSSION: There are postsurgical changes of a total right shoulder arthroplasty. There is no disloc ation. Overlying skin joanna are evident. There is gas in the soft tissues consistent with recent barclay rgery. IMPRESSION: Postsurgical changes of a total right shoulder arthroplasty. ACT 112: Negative or not required by law. Electronically signed by: Goldy Reyes M.D. 03/24/2020 2:23 PM
--- NOTE | 2020-03-24 14:53 | Anesthesiology Progress Note ---
Date of Service March 24, 2020 Anesthesia Post Procedure Vital Signs Vital Signs: Temp Pulse Pulse Resp BP Pulse Ox 03/24/20 14:50 81 21 124/70 93 03/24/20 14:40 79 20 126/73 92 03/24/20 14:30 83 22 125/76 92 03/24/20 14:20 36.2 C L 80 21 132/77 96 03/24/20 14:10 87 20 134/75 97 03/24/20 14:01 36.1 C L 94 H 18 131/71 97 03/24/20 10:43 74 20 152/89 H 99 03/24/20 10:13 36.5 C 69 18 161/90 H 99 Transfer of Care Handoff Completed per policy Notes Mental Status: alert / awake / arousable and participated in evaluation Patient Amnestic to Procedure: Yes Nausea / Vomiting: adequately controlled Pain: adequately controlled Airway Patency, RR, SpO2: stable & adequate BP & HR: stable & adequate Hydration State: stable & adequate Anesthetic Complications: no major complications apparent and Pt Satisfied with anesthetic care Notes: block is functioning well
[2020-03-24] MEDS ORDERED: METOCLOPRAMIDE HCL INJ 5 MG/ML 2 ML VIAL IV PRN (15:25)
[2020-03-24] MEDS ORDERED: OXYCODONE HCL IR 5 MG TAB (IMMEDIATE RELEASE) PO PRN (15:25)
[2020-03-24] MEDS ORDERED: bisacodyL 10 MG SUPP PR PRN (15:25)
[2020-03-24] MEDS ORDERED: MAGNESIUM HYDROXIDE SUSP 30 ML UDC PO PRN (15:25)
[2020-03-24] MEDS ORDERED: HYDROmorphone INJ 0.5 MG/0.5 ML SYR IV PRN (15:25)
[2020-03-24] MEDS ORDERED: NALOXONE HCL 0.4 MG/1 ML VIAL/CARP IV PRN (15:25)
[2020-03-24] MEDS ORDERED: SODIUM CHLORIDE 0.9% 1000ML 1,000 ML IV SCH (16:00)
[2020-03-24] MEDS: KETOROLAC TROMETHAMINE 15 MG/ML VIAL IV SCH ×2 (16:16→22:00)
[2020-03-24] MEDS: ACETAMINOPHEN 500 MG TAB PO SCH (17:46)
[2020-03-24] MEDS: DOCUSATE SODIUM 100 MG CAP PO SCH (20:02)
[2020-03-24] MEDS: TAMSULOSIN HCL 0.4 MG CAP PO SCH (20:02)
[2020-03-24] MEDS: CEFAZOLIN 2000MG 2,000 MG/15 ML SYR IV SCH (20:05)
[2020-03-24] MEDS ORDERED: SENNA 8.6 MG TAB PO SCH (21:00)
[2020-03-25] MEDS: KETOROLAC TROMETHAMINE 15 MG/ML VIAL IV SCH ×2 (03:55→09:29)
[2020-03-25] MEDS: CEFAZOLIN 2000MG 2,000 MG/15 ML SYR IV SCH (03:55)
[2020-03-25 05:53] LABS: Basophils # (auto) 0.01 K/uL (0-0.2); Basophils % (auto) 0.1 %; Eosinophils # (auto) 0.01 K/uL (0-0.5); Eosinophils % (auto) 0.1 %; Hematocrit (blood only) 40.2 % (42-52); Hemoglobin 13.8 g/dL (14.0-18.0); Immature Granulocytes # (auto) 0.02 K/uL (0.00-0.02); Immature Granulocytes % (auto) 0.2 %; Lymphocytes # (auto) 1.48 K/uL (1.2-3.4); Lymphocytes % (auto) 12.2 %; Mean Corpuscular Hemoglobin 28.9 pg (25-34); Mean Corpuscular Hgb Conc 34.3 g/dL (32-36); Mean Corpuscular Volume 84.1 fL (80-100); Mean Platelet Volume 9.7 fL (7.4-10.4); Monocytes # (auto) 1.24 K/uL (0.11-0.59); Monocytes % (auto) 10.2 %; Neutrophils # (auto) 9.37 K/uL (1.4-6.5); Neutrophils % (auto) 77.2 %; Platelet Count 218 K/uL (130-400); RDW Coefficient of Variation 14.1 % (11.5-14.5); RDW Standard Deviation 43.9 fL (36.4-46.3); Red Blood Count 4.78 M/uL (4.7-6.1); White Blood Count 12.13 K/uL (4.8-10.8)
[2020-03-25 06:19] LABS: BUN Creatinine Ratio 16.3 (10-20); Calcium 8.9 mg/dl (8.5-10.1); Creatinine Clr Calc Pharmacy 77.4 ml/min; Est GFR (African American) 87.3; Est GFR (Non-African American) 75.3; Potassium 4.2 mmol/L (3.5-5.1)
[2020-03-25] MEDS: ACETAMINOPHEN 500 MG TAB PO SCH (06:30)
--- NOTE | 2020-03-25 07:16 | Orthopedic Progress Note ---
Date of Service March 25, 2020 Assessment & Plan (1) Status post replacement of right shoulder joint: Overall he is doing very well. Is not having much pain in the right shoulder. He will be seen by physical therapy this morning for ambulation and range of motion exercises. He can be discharged home later today. He will follow-up with orthopedics in 2 weeks. Present on Admission?: Yes Subjective Juan Jose was seen and examined at bedside this morning. Overall he is doing very well. Is not having much pain in the right shoulder. He was able to get some sleep last night. He has no complaints. Physical Exam Musculoskeletal: On physical examination of the right shoulder, the Silverlon dressing is in place. He is wearing his sling as instructed. He is neurovascularly intact at his wrist. Results & Data ([facility]) Vital Signs (Past 12 Hours) Vital Signs Temp Pulse Resp BP Pulse Ox 03/25/20 03:10 36.7 C 58 L 16 144/81 H 97 03/24/20 22:59 36.6 C 60 16 147/83 H 98 Laboratory Results H & H 02/20/20 03/25/20 Range/Units 11:14 05:29 Hgb 13.3 L 13.8 L (14.0-18.0) g/dL Hct 40.2 L 40.2 L (42-52) % Coagulation 02/20/20 Range/Units 11:14 INR 1.0 (0.9-1.1) Diagnostic Findings Postoperative x-rays of the right shoulder show the prosthesis to be in anatomic alignment without any evidence of fracture, dislocation, or loosening PG Care Time/CCT Total # of Minutes Spent Total Time Spent with Patient: Total time spent is greater than 50% in coordination of care (as documented) at patient's floor/unit and/or counseling patient: Coding Level of Care Code None Diagnoses Status post replacement of right shoulder joint Z96.611
--- NOTE | 2020-03-25 07:17 | Discharge Summary ---
Date of Service March 25, 2020 Admission HPI Per Admitting Provider Juan Jose is a pleasant 64-year-old male who I did a left shoulder replacement on 6 months ago. He has done very well with that. Unfortunately he is dealing with right shoulder pain. X-rays and clinical examination have been diagnostic for advanced osteoarthritis of the right shoulder. After failing conservative treatment, he has elected proceed with a right total shoulder arthroplasty. Principal Diagnosis Right shoulder replacement Discharge Data Allergies Allergy/AdvReac Type Severity Reaction Status Date / Time Penicillins Allergy Unknown HIVES - as Verified 03/24/20 10:03 a child Consultations 03/24/20 15:25 Consult Case Management - Discharge Planning Routine Procedures Performed Operation Date: 03/24/20 11:25 Actual Procedures p Right Total Shoulder Arthroplasty(Right) - Ashkan Lara DO Ordered Studies 03/24/20 05:00 US - OR guided needle placemen Routine Hospital Course (1) Status post replacement of right shoulder joint: On March 24, 2020 Juan Jose arrived at [facility] and underwent a right shoulder replacement without complication. He had a general anesthetic and a right interscalene nerve block. Postoperatively he was placed in a sling and transferred to the general medical floors. His hospital course was uneventful. On postop day #1 his H&H was stable and his pain was well controlled. He was able to participate well with physical therapy doing ambulation and range of motion exercises. He was then discharged home. He will follow-up with orthopedics in 2 weeks Total Time Total Time Spent Total Time Spent (In Minutes): 20 Discharge Plan Discharge Items Patient Disposition: Home - Home Health Services Reason For Visit: RIGHT SHOULDER DEGENERATIVE JOINT DISEASE Discharge Diagnosis: Right shoulder replacement Activity: As commented below Non-emergency contact: Surgeon Call non-emergency contact if: your wound has increased redness and your wound has increased drainage Follow-up/Referrals: Cathy Oh M.D. [Primary Care Provider] - Diet: Regular Addtl Attending Provider Instructions: Activity and Therapy Recommendations: * If you are using [facility] then therapy will be provided at your home until they feel you have accomplished all of your goals. * If you are using [facility] then Physical Therapy will be provided until they feel you are ready to start Outpatient Physical Therapy. * If you are not using home therapy then Outpatient Physical Therapy should start about 3-5 days from your day of surgery. Therapy will last about 8-12 weeks * Wear your sling for 3 weeks, unless otherwise instructed. You may remove your sling to shower and to dress, but otherwise, you should be in your sling at all times, including while sleeping * The shoulder replacement is very stable and you can use your hand while in the sling * You were shown a series of exercises in the hospital. Do these exercises daily including the exercises you were shown in physical therapy. Medications: * Narcotic You will likely be sent home from the hospital with a prescription for the narcotic pain medication that worked best throughout your stay. * Other medications may be prescribed for specific circumstances. If you have any questions, please call the office at . * Resume previous home medications unless otherwise instructed Dressing Care: Leave the Silverlon dressing in place for 7 days. After 7 days remove the dressing. If the incision is not draining then you may leave the joanna open to air. If there is a little bit of drainage or if the joanna are getting stuck on your clothing then cover the incision with a dry dressing. The joanna will be removed at your 2 week follow-up appointment. Showering: You may shower with the Silverlon dressings in place. After 7 days you may remove the dressing and shower with the joanna exposed Let the soapy shower water run over the joanna and pat them dry. Do not scrub or soak the incision. Things To Watch For: * Drainage from the incision site that occurs more than one week after your surgery. * Increased redness at the incision site. * Fever above 102 degrees Fahrenheit. * Unusual chest pain or shortness of breath. * Call [facility] at with any of the above problems Follow-Up Visit: Follow-up with Dr. Lara's PA (Ashkan Flores) 2-3 weeks after your day of surgery. He will remove your joanna and answer any questions. If you have any additional questions or concerns, Dr Lara is usually in the office at the same time and will be available An appointment was probably scheduled when you signed-up for surgery in the office. If you have any questions call More detailed instructions as well as Frequently Asked Questions were provided in a folder by our office when you signed-up for surgery. Please review these instructions when you get home. If you have any further questions or concerns, please feel free to call the office at [phone] Pending Studies at Discharge: No Stand-Alone Forms: My [facility] Medications and DC Order Prescriptions: Continued multivitamin Tablet 1 tab PO QAM RF: 0 ascorbic acid (vitamin C) [Vitamin C] 1,000 mg Tablet 1 g PO QAM RF: 0 atorvastatin [Lipitor] 20 mg Tablet 20 mg PO QAM RF: 0 aspirin [Aspirin Low Dose] 81 mg Tablet,Delayed Release (Dr/Ec) 81 mg PO QAM RF: 0 tamsulosin [Flomax] 0.4 mg Capsule 0.4 mg PO BID RF: 0 naproxen sodium [Aleve] 220 mg Tablet 220 mg PO BID PRN (Reason: Pain) RF: 0 coenzyme Q10 [CoQ-10] 100 mg Capsule 100 mg PO QAM RF: 0 omega 7-kcn-zfu-fish oil [Fish Oil] 1,000 mg (120 mg-180 mg) Capsule 1 cap PO QAM RF: 0 Discharge Orders: Discharge Order (Routine); Ordered 03/25/20 Ordered By: Ashkan Lara Admission Data Admit Date/Time: 03/24/20 13:59 Attending Provider: Ashkan Lara Admit Provider: Ashkan Lara Primary Care Provider: Cathy Oh Coding Level of Care Code D/C Day Management <30 mins Diagnoses Status post replacement of right shoulder joint Z96.611
[2020-03-25 07:33] VITALS: BP 135/77; PULSE 60; TEMP 98.6; O2SAT 96
[2020-03-25] MEDS ORDERED: dexAMETHasone 4 MG TAB PO SCH (08:00)
[2020-03-25] MEDS ORDERED: ASPIRIN 81 MG ECTAB PO SCH (09:00)
[2020-03-25] MEDS ORDERED: MULTIVITAMIN TAB PO SCH (09:00)
[2020-03-25] MEDS ORDERED: ATORVASTATIN 20 MG TAB PO SCH (09:00)
[2020-03-25] MEDS: TAMSULOSIN HCL 0.4 MG CAP PO SCH (09:27)
[2020-03-25] MEDS: DOCUSATE SODIUM 100 MG CAP PO SCH (09:27)
--- NOTE | 2020-04-02 07:11 | Operative Report ---
PG Post Operative Report Pre & Post Diagnosis Operation Date: 03/24/20 11:25 Pre-Op Diagnosis: Right Shoulder Degenerative Joint Disease with tendinopathy of the long head of the biceps tendon Post-Op Diagnosis: Right Shoulder Degenerative Joint Disease with tendinopathy of the long head of the biceps tendon I identified the patient and participated in the time-out.: Yes Procedure Operation Date: 03/24/20 11:25 Actual Procedures p Right Total Shoulder Arthroplasty with open biceps tenodesis as a distinct and separate procedure (modifier 59) (Right) - Ashkan Lara DO Surgeon Ashkan Lara DO Relay Assembler Ashkan Flores PAC Estimated Blood Loss 250 Findings Consistent with Post-Op Diagnosis Specimens Right humeral head Complications none Disposition Disposition: Recovery Room Indications Juan Jose is a pleasant 64-year-old male who is been dealing with chronic increasing right shoulder pain. X-rays and clinical examination have been diagnostic for advanced osteoarthritis of the right shoulder. After failing conservative treatment, he elected proceed with a right total shoulder arthroplasty. Description of Procedure A CPT code modifier 59: The long head of the biceps tendon was enlarged and inflamed consistent with tendinopathy. A tenodesis was opted. This was a separate and distinct portion of the procedure. For these reasons, a CPT code modifier 59 will be added to this case. Implants used: I used a [employer] Comprehensive total shoulder arthroplasty system with a size 12 press fit micro humeral stem, a size 50 x 21 eccentric humeral head, and a 4 glenoid with a trabecular metal peg. The glenoid was cemented in place with Palacos G cement. Juan Jose arrived at [facility] for the above procedure. He was seen in the preoperative holding area and the operative extremity was identified and signed. He was given a preoperative antibiotic, TXA, and an interscalene nerve block. He was taken back to the operating room, laid on table in supine position, and put under general anesthesia. He was then put into the beachchair position. The shoulder was then prepped and draped in sterile fashion. A timeout was done and the patient and the operative extremity was properly identified. A deltopectoral approach was used. Dissection was taken down through the fascia and the deltoid was retracted laterally and the conjoined tendon was retracted medially. The anterior shoulder was exposed. The biceps groove was opened up and the biceps tendon was examined extensively. The biceps tendon demonstrated enlargement and inflammatory changes consistent with longstanding inflammation in the context of osteoarthritis. The long head of the biceps tendon was then tenodesed to the upper border of the pectoralis major. This was a separate and distinct portion of the procedure. The subscapularis was then released off the lesser tuberosity with a centimeter of cuff tissue remaining. The inferior capsule was released and the humeral head was dislocated. The rotator cuff was inspected and intact. A canal finding reamer was sent down the center of the humeral canal. Sequential reaming up to a size 12 reamer was done. Offset reamer a proximal humeral resection guide was placed. The proximal humerus was resected at 135 of inclination and 30 of retroversion. Inferior osteophytes were then removed and the glenoid was exposed. Time was spent doing an appropriate labral release. The glenoid measured to be a size 4. A 3.2 mm Steinmann pin was placed in the central hole of the glenoid vault pin guide. The glenoid was then reamed with a propeller reamer. The central post cutter was then used to prepare for the central boss. The cannulated peripheral peg drill guide was then placed and 3 peg holes were drilled. The final size 4 glenoid was then cemented in place with Palacos G cement. Surrounding soft tissues were then injected with 100 cc of an orthopedic pain control cocktail. Once cement had dried the proximal humerus was once again exposed. Sequential broaching of the humerus up to a size 12 broach was done. Off that broach a size 50 x 21 eccentric humeral head was trialed. The shoulder was then reduced, brought through a full range of motion, and felt to be stable. The shoulder was then dislocated and the broach was removed. The final size 12 micro humeral stem implant was then impacted into place. A size 50 x 21 eccentric humeral head was then impacted onto the humeral stem. The shoulder was then reduced and once again brought through a full range of motion and felt to be stable. The subscapularis was then tenodesed back to the lesser tuberosity with transosseous FiberWire sutures and side to side sutures with the arm in 45 of external rotation. 2 sutures were placed in the lateral rotator interval. A dilute betadyne lavage was then done for 3 minutes. The joint was then irrigated with normal saline solution. Hemostasis was obtained. The interval was closed with 2-0 Vicryl suture. The skin was closed with 2-0 Vicryl and joanna. A Silverlon dressing was placed and the arm was rested in a regular arm sling. He was then extubated and transferred to a hospital bed. He was taken to the postanesthesia care unit in stable condition. He tolerated the procedure well. Ashkan Flores PA-C, was present for the entire procedure. He was critical for patient positioning, prepping, draping, retraction exposure, wound closure and application of sterile dressing. I attest to the content of the Intraoperative Record and any orders documented therein. Any exceptions are noted below.
== END 2020-03-25 10:58 | disposition home or self-care (01) | DRG 483 ==
LOC: ASU 09:24 → 3E 13:59

== ENCOUNTER 2022-05-18 11:58 | Observation (INO) ==
--- NOTE | 2022-04-16 09:44 | PAT Medication Instructions ---
Medication Instructions Date of Service April 16, 2022 Home Medications Medication Instructions Recorded tamsulosin 0.4 mg capsule (Flomax) 0.4 mg PO BID #180 caps 12/09/21 ascorbic acid (vitamin C) 1,000 mg tablet (Vitamin C) 1 g PO QAM aspirin 81 mg tablet,delayed release (Carmen Low Dose Aspirin) 81 mg PO QAM atorvastatin 20 mg tablet (Lipitor) 20 mg PO QAM coenzyme Q10 100 mg capsule (CoQ-10) 100 mg PO QAM multivitamin 1 tab PO QAM naproxen sodium 220 mg tablet (Aleve) 220 mg PO BID PRN Pain omega 9-cyz-mkf-fish oil 1,000 mg (120 mg-180 mg) capsule (Fish Oil) 1 cap PO QAM tamsulosin 0.4 mg capsule (Flomax) 0.4 mg PO BID ASK your surgeon for instructions naproxen sodium 220 mg tablet (Aleve) 220 mg PO BID PRN Pain ASK your prescriber and surgeon aspirin 81 mg tablet,delayed release (Carmen Low Dose Aspirin) 81 mg PO QAM STOP taking 2 weeks before surgery (or as soon as possible if surgery is within 2 weeks) coenzyme Q10 100 mg capsule (CoQ-10) 100 mg PO QAM omega 5-qnw-hpt-fish oil 1,000 mg (120 mg-180 mg) capsule (Fish Oil) 1 cap PO QAM DO NOT take the morning of surgery ascorbic acid (vitamin C) 1,000 mg tablet (Vitamin C) 1 g PO QAM multivitamin 1 tab PO QAM Take morning of surgery With a small sip of water, OTHERWISE NOTHING TO EAT OR DRINK AFTER MIDNIGHT: atorvastatin 20 mg tablet (Lipitor) 20 mg PO QAM tamsulosin 0.4 mg capsule (Flomax) 0.4 mg PO BID Take evening before surgery tamsulosin 0.4 mg capsule (Flomax) 0.4 mg PO BID Other Notes If you have any questions please call us at [phone] or [phone] or [phone] or [phone]
--- NOTE | 2022-04-29 10:10 | Anesthesiology Consultation ---
Date of Service April 29, 2022 Assessment & Plan (1) Encounter for pre-operative examination: - COVID screening: Per assessment on 04/29/2022: Travel screen negative, no known COVID-19 positive contacts or current COVID-19 related symptoms in past 2 weeks. Pt vaccinated. To surgeon's discretion if preop COVID testing needed. Chart Review Chart Review: Acceptable Risk for Surgery and Patient seen in Pre Admission Testing Teaching & Discussion Pre-Anesthesia Teaching/Discussion Notes: Instructed NPO after midnight before surgery, except medications with 15 cc of water. Medication instructions provided according to the PAT guidelines. History Surgery Operation Date: 05/18/22 07:30 Proposed Procedures p Transurethral Resection Prostate - Cal Ovalle MD Height/Weight Height: 6 ft Weight: 92.2 kg Allergies Allergy/AdvReac Type Severity Reaction Status Date / Time Penicillins Allergy Unknown HIVES - as Verified 04/29/22 09:28 a child Medications Home Medications Medication Instructions Recorded Confirmed Last Taken aspirin 81 mg tablet,delayed 81 mg PO QAM 06/06/19 04/29/22 03/23/20 07:00 release (Carmen Low Dose Aspirin) atorvastatin 20 mg tablet (Lipitor) 20 mg PO QAM 06/06/19 04/29/22 03/24/20 06:30 coenzyme Q10 100 mg capsule 100 mg PO QAM 06/06/19 04/29/22 03/17/20 (CoQ-10) multivitamin 1 tab PO QAM 06/06/19 04/29/22 03/23/20 07:00 naproxen sodium 220 mg tablet 220 mg PO BID PRN Pain 06/06/19 04/29/22 06/29/19 06:00 (Aleve) omega 2-ztv-hke-fish oil 1,000 mg 1 cap PO QAM 06/06/19 04/29/22 03/17/20 (120 mg-180 mg) capsule (Fish Oil) tamsulosin 0.4 mg capsule (Flomax) 0.4 mg PO BID #180 caps 12/09/21 04/29/22 Unknown Past Medical History Medical History (Updated 04/29/22 @ 15:06 by Lacy Bales PA-C) BPH (benign prostatic hyperplasia) Diverticular disease h/o single episode of diverticulitis, tx with ABX GERD (gastroesophageal reflux disease) diet controlled, stable per pt Hyperlipidemia Patient denies h/o stroke, seizures, heart attack, heart failure, DM, HTN, blood clots or blood transfusions. Exercise / Class Metabolic Activity III < 4 Walking/Shop/Light housework (denies CP or SOB with usual activities) Past Family History Family History Other No family history of adverse response to anesthesia No pertinent family history Past Surgical History Surgical History History of colonoscopy History of left shoulder replacement (~06/2019) 07/13/19 [facility]: Grade 2 view, MAC 4, ETT 8 atraumatic x 1 + PNB. No postop issues per anesthesia postop progress note. 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 No postop issues per anesthesia progress note. [place] teeth removed Past Anesthesia History No Hx of Anesthesia Complications and No Family Hx of Anesthesia Complications History of PONV No Hx of PONV and No Hx of Motion Sickness Social History Smoking Status: Former smoker tobacco type: cigarettes Smoking End Date: 10+ years ago Hx Alcohol Use: Yes Alcohol type: beer alcohol intake frequency: a few times a month Hx Substance Use: Yes substance use type: marijuana Last Used Substance: Days (ago) Last Used Substance Other:: ~1 week ago (advised) Review of Systems Snoring, denies witnessed apneas. Occasional reflux triggered by orange juice. Patient denies chest pain, shortness of breath, dyspnea on exertion, fever, chills, cough, wheezing, or palpitations. Physical Exam Vital Signs Vitals BP 144/86 P 72 TEMP 98.2 SP02 99% on RA RESP 16 Physical Full cervical extension range of motion without pain TMD 3.5 finger breadths Mallampati Score 2 Dentition: intact, left upper side bridge; denies chipped or loose teeth, caps/crowns, or implants Lungs: normal respiratory effort. Clear throughout to auscultation, no adventitious breath sounds Cardiac: regular rate and rhythm, no murmurs noted Carotid arteries: negative bruit bilat Lab Results Anesthesia Preop Results Results Anesthesia Widget: WBC 5.85 K/ul (4.8-10.8) 04/29/22 Hgb 14.9 g/dl (14.0-18.0) 04/29/22 Hct 45.3 % (40.1-51.0) 04/29/22 Plt 223 K/uL (130-400) 04/29/22 Na 139 mmol/L (136-145) 04/29/22 K 4.3 mmol/L (3.5-5.1) 04/29/22 Cl 106 mmol/L (98-107) 04/29/22 CO2 27 mmol/L (21-32) 04/29/22 BUN 19 mg/dl (6-23) 04/29/22 Creat 0.99 mg/dl (0.6-1.4) 04/29/22 Glucose Level 92 mg/dl (70-99(Fasting)) 04/29/22 Urine Color Yellow 04/29/22 Urine Appearance Clear (Clear) 04/29/22 Urine pH 7.0 (4.5-7.5) 04/29/22 Urine Specific [place] 1.016 (1.000-1.030) 04/29/22 Urine Protein Negative (Negative) 04/29/22 Urine Glucose (UA) Negative (Negative) 04/29/22 Urine Ketones Negative (Negative) 04/29/22 Urine Blood Negative (Negative) 04/29/22 Urine Nitrite Negative (Negative) 04/29/22 Urine Bilirubin Negative (Negative) 04/29/22 Urine Urobilinogen Negative (Negative) 04/29/22 Urine Leukocyte Esterase Negative (Negative) 04/29/22 Testing Electrocardiogram Date: 04/29/22 Sinus bradycardia, rate 58 bpm Incomplete RBBB Chest X-Ray Date: 04/29/22 Cardiomediastinal and hilar silhouettes are within normal limits. The previously questioned nodules of the left upper lung are not identified on today's study. Bilateral nipple shadows are noted. No pneumothorax, pleural effusion, airspace consolidation or overt pulmonary edema. Degenerative changes of the spine. Bilateral shoulder arthroplasties. IMPRESSION: No acute process.
[~2022-05-18 11:58] MED LIST changes: -ACETAMINOPHEN 500 MG TAB PO SCH; -BUPIVACAINE 0.5 % 5 MG/1 ML PF 10ML VIAL ONE; -CEFAZOLIN 2000MG 2,000 MG/15 ML SYR IV SCH; +CIPROFLOXACIN / D5W 400 MG/200 ML BAG IV SCH; -FAMOTIDINE 20 MG TAB PO SCH; -GABAPENTIN 300 MG CAP PO SCH; -LR 60ML/HR IV SCH; -ROPIVACAINE 0.5% HCL/PF 150 MG, BUPIVACAINE 0.5% MPF 30 ML, EPINEPHrine 30MG/30ML (OR U... INSTIL SCH; -TRANEXAMIC ACID 1,000 MG **IV Intra-op IV SCH; -TRANEXAMIC ACID 1,000 MG **IV Pre-op IV SCH; -dexAMETHasone 4 MG TAB PO SCH
--- NOTE | 2022-05-18 12:13 | History & Physical Bridge Note ---
Date of Service May 18, 2022 History & Physical Bridge Note I have examined the patient, reviewed the History & Physical and in the interval since the performance of the History & Physical I have noted the following changes of clinical significance: no changes noted
[2022-05-18] MEDS ORDERED: PHENYLEPHRINE 100MCG/ML 5ML SYR ONE (12:50)
[2022-05-18] MEDS ORDERED: PROPOFOL IV EMULSION 10 MG/ML 20 ML VIAL IV ONE (12:50)
[2022-05-18] MEDS ORDERED: LIDOCAINE 2% MPF LOCAL 5 ML VIAL INFIL ONE (12:50)
[2022-05-18] MEDS ORDERED: ePHEDrine sulfate 50 MG/ML SYR ONE (12:50)
[2022-05-18] MEDS ORDERED: fentaNYL citrate 100 MCG/2 ML VIAL ONE (12:50)
[2022-05-18] MEDS ORDERED: MIDAZOLAM HCL 1 MG/ML 2ML VIAL ONE (12:50)
[2022-05-18] MEDS ORDERED: ONDANSETRON INJ 2 MG/ML 2 ML VIAL ONE (12:50)
[2022-05-18] MEDS ORDERED: ePHEDrine sulfate 50 MG/ML AMP IV PRN (13:15)
[2022-05-18] MEDS ORDERED: LABETALOL HCL IV 5 MG/ML 20ML IV PRN (13:15)
[2022-05-18] MEDS ORDERED: fentaNYL citrate 100 MCG/2 ML VIAL IV PRN (13:15)
[2022-05-18] MEDS ORDERED: ONDANSETRON INJ 2 MG/ML 2 ML VIAL IV PRN (13:15)
[2022-05-18] MEDS ORDERED: PROMETHAZINE HCL 12.5 MG in SODIUM CHLORIDE 0.9% 50 ML IV PRN (13:15)
[2022-05-18] MEDS ORDERED: NALOXONE HCL 0.4 MG/1 ML VIAL/CARP IV PRN (13:15)
[2022-05-18] MEDS ORDERED: FLUMAZENIL 0.1 MG/1 ML 10 ML VIAL IV PRN (13:15)
[2022-05-18] MEDS ORDERED: ATROPINE SULFATE 0.1 MG/ML 10ML SYR IV PRN (13:15)
[2022-05-18] MEDS ORDERED: DEXAMETHASONE SOD INJ 4 MG/ML VIAL ONE (14:03)
--- NOTE | 2022-05-18 15:02 | Operative Report ---
PG Post Operative Report Pre & Post Diagnosis Operation Date: 05/18/22 13:40 Pre-Op Diagnosis: Benign Localized Prostatic Hyperplasia with lower urinary tract symptoms Post-Op Diagnosis: Benign Localized Prostatic Hyperplasia with lower urinary tract symptoms I identified the patient and participated in the time-out.: Yes Procedure Operation Date: 05/18/22 13:40 Actual Procedures p Transurethral Resection Prostate(Not Applicable) - Cal Ovalle MD Surgeon Cal Ovalle MD Radiological Technologist none Estimated Blood Loss 5 Findings Consistent with Post-Op Diagnosis Trilobar hypertrophy of the prostate Specimens Prostate chips Drains 22 Swedish Cho catheterthree-way Anesthesia Type General Complications None Description of Procedure The patient was identified in the preoperative holding area, appropriate informed consents were reviewed and completed and the patient was transferred to the operative suite. Upon arrival, appropriate antibiotics and anesthesia were administered and the patient was placed in dorsal lithotomy position and prepped and draped in sterile fashion. To begin the case I passed a 27 Swedish resectoscope with 30 degree lens and visual obturator. Inspection revealed a healthy-appearing urethra, a large prostate with intravesical intrusion with a median lobe. Bladder was heavily trabeculated but healthy otherwise. Following my inspection I utilized a loop electrode to resect the intravesical median lobe. This greatly improved the appearance of the prostate. He still had lateral lobe hypertrophy in the left and the right and I resected tissue from both sides. After evacuating all chips from the bladder I reentered with a button electrode and cauterized the resected area smoothing it and obtaining meticulous hemostasis. I again confirmed all chips of been evacuated from the bladder and hemostasis was excellent before concluding the case. I then withdrew the scope. A 22 Swedish three-way Cho catheter was inserted and gentle CBI started without difficulty. There were no complications. I attest to the content of the Intraoperative Record and any orders documented therein. Any exceptions are noted below.
--- NOTE | 2022-05-18 15:32 | Anesthesiology Progress Note ---
Date of Service May 18, 2022 Anesthesia Post Procedure Vital Signs Vital Signs: Temp Pulse Pulse Resp BP Pulse Ox O2 Del Method 05/18/22 15:20 88 19 137/76 95 Room Air 05/18/22 15:10 91 H 17 137/80 100 Oxymask 05/18/22 15:00 86 18 139/80 99 Oxymask 05/18/22 14:54 36.3 C L 88 16 136/75 98 Oxymask 05/18/22 12:14 36.7 C 89 20 161/103 H 97 Room Air O2 Flow Rate 05/18/22 15:20 05/18/22 15:10 5 05/18/22 15:00 7 05/18/22 14:54 7 05/18/22 12:14 Transfer of Care Handoff Completed per policy Notes Mental Status: alert / awake / arousable Patient Amnestic to Procedure: Yes Nausea / Vomiting: adequately controlled Pain: adequately controlled Airway Patency, RR, SpO2: stable & adequate BP & HR: stable & adequate Hydration State: stable & adequate Anesthetic Complications: no major complications apparent
[2022-05-18] MEDS ORDERED: ACETAMINOPHEN 325 MG TAB PO PRN (16:27)
[2022-05-18] MEDS ORDERED: traMADol HCL 50 MG TABLET PO PRN ×2 (16:27)
[2022-05-18] MEDS: LACTATED RINGER'S 1,000 ML IV SCH ×2 (18:04→19:24)
[2022-05-19] MEDS ORDERED: CIPROFLOXACIN / D5W 400 MG/200 ML BAG IV SCH (02:00)
[2022-05-19 07:19] LABS: Basophils # (auto) 0.01 K/uL (0-0.2); Basophils % (auto) 0.1 %; Eosinophils # (auto) 0.03 K/uL (0-0.50); Eosinophils % (auto) 0.3 %; Hematocrit (blood only) 40.5 % (40.1-51.0); Hemoglobin 13.9 g/dl (14.0-18.0); Immature Granulocytes # (auto) 0.02 K/uL (0.00-0.02); Immature Granulocytes % (auto) 0.2 %; Lymphocytes # (auto) 2.36 K/uL (1.2-3.4); Lymphocytes % (auto) 25.6 %; Mean Corpuscular Hemoglobin 29.2 pg (25.0-34.0); Mean Corpuscular Hgb Conc 34.3 g/dL (32.0-36.0); Mean Corpuscular Volume 85.1 fL (80.0-100.0); Monocytes # (auto) 0.92 K/uL (0.24-0.82); Neutrophils # (auto) 5.89 K/uL (1.4-6.5); Neutrophils % (auto) 63.8 %; Platelet Count 227 K/uL (130-400); RDW Coefficient of Variation 12.9 % (11.5-14.5); RDW Standard Deviation 40.4 fL (36.4-46.3); Red Blood Count 4.76 M/uL (4.63-6.08); White Blood Count 9.23 K/ul (4.8-10.8)
--- NOTE | 2022-05-19 08:08 | Urology Progress Note ---
Date of Service May 19, 2022 Assessment & Plan (1) Benign localized prostatic hyperplasia with lower urinary tract symptoms (LUTS): Plan Postop day #1 status post TURP CBI clamped this morning Plan for catheter removal and discharge home later today Admission and Anticipated Discharge Date Admission Date: May 18, 2022 Subjective No major issues overnight Urine draining well with slow CBI No pain or discomfort Physical Exam Physical Exam: [place] lemonade colored urine with a very slow CBI Results & Data ([facility]) Vital Signs (Past 12 Hours) Vital Signs Temp Pulse Resp BP Pulse Ox O2 Del Method 05/19/22 07:18 36.6 C 69 16 169/89 H 98 Room Air 05/18/22 22:06 36.8 C 96 H 14 144/81 H 94 Room Air PG Care Time/CCT Total # of Minutes Spent Total Time Spent with Patient: Total time spent is greater than 50% in coordination of care (as documented) at patient's floor/unit and/or counseling patient: Coding Level of Care Code None Diagnoses Benign localized prostatic hyperplasia with lower urinary tract symptoms (LUTS) N40.1
[2022-05-19 08:17] LABS: BUN Creatinine Ratio 18.2 (10-20); Calcium 8.8 mg/dl (8.5-10.1); Est GFR (African American) 101.6 ml/min; Est GFR (Non-African American) 87.6 ml/min; Potassium 3.7 mmol/L (3.5-5.1)
[2022-05-19] MEDS ORDERED: MULTIVITAMIN TAB PO SCH (09:00)
[2022-05-19] MEDS ORDERED: NON-FORMULARY MEDICATION (Coenzyme Q10 [Coq-10] 100 mg Capsule) PO SCH (09:00)
[2022-05-19] MEDS ORDERED: ATORVASTATIN 20 MG TAB PO SCH (09:00)
--- NOTE | 2022-05-19 12:37 | Discharge Summary ---
Date of Service May 19, 2022 Admission HPI Per Admitting Provider Longstanding voiding dysfunction which has been refractory to medications We discussed the surgery and expectations for recovery today He is eager to move forward with TURP, will plan for 23-hour observation stay wi th voiding trial prior to leaving the hospital Admission Exam Per Admitting Provider Constitutional well developed and well nourished Neck neck nontender Respiratory normal respiratory effort; no respiratory distress and does not use accessory muscles Cardiovascular Rate/Rhythm: regular rate Vessels: radial pulses present Extremities: no edema Gastrointestinal (Abdomen) Inspection/Auscultation: abdomen normal to inspection Percussion/Palpation: abdomen soft; abdomen nontender and no guarding Musculoskeletal Head/Neck/Chest: normocephalic and head atraumatic Extremities: extremities normal to inspection Skin no rashes and no lesions Trauma: no evidence of skin trauma Neurologic awake; not obtunded Speech / Cognition: normal speech Motor/Sensory: no tremor Psychiatric Orientation: alert and oriented x 3 Genitourinary no CVA tenderness Lymphatic no lymphadenopathy Principal Diagnosis BPH with LUTS Discharge Exam Constitutional well developed and well nourished; no acute distress Respiratory normal respiratory effort; no respiratory distress and no labored breathing Gastrointestinal (Abdomen) Inspection/Auscultation: abdomen normal to inspection; abdomen not distended Musculoskeletal Extremities: extremities normal to inspection Skin no rashes, warm and dry Neurologic moves all extremities and awake Psychiatric Orientation: alert and oriented x 3 Genitourinary Light naranjo red urine in urinal Discharge Data Allergies Allergy/AdvReac Type Severity Reaction Status Date / Time Penicillins Allergy Unknown HIVES - as Verified 05/18/22 12:27 a child Procedures Performed Operation Date: 05/18/22 13:40 Actual Procedures p Transurethral Resection Prostate(Not Applicable) - Cal Ovalle MD Hospital Course (1) Benign localized prostatic hyperplasia with lower urinary tract symptoms (LUTS): Plan Postop day #1 status post TURP CBI clamped this morning Plan for catheter removal and discharge home later today Patient voiding well after catheter removal Ready for discharge to home, orders placed Expected clinical course reviewed, all questions answered Total Time Total Time Spent Total Time Spent (In Minutes): 29 Discharge Plan Discharge Items Patient Disposition: Home - Self-Care Reason For Visit: Benign Localized Prostatic Hyperplasia with LUTS Discharge Diagnosis: BPH with LUTS Activity: Per Instructions section Lifting: No more than 25 pounds Bathing Comment: Okay to shower after discharge Sexual Activity: Wait until after follow-up appointment Exercise/Sports: Wait until after follow-up appointment Driving/Machine Use: No driving while taking prescription pain medication Non-emergency contact: Surgeon and Urologist Call non-emergency contact if: your pain is not controlled, you have a fever and your temperature is above 101.5 Follow-up/Referrals: Sarai Taylor CRNP [Nurse Practitioner] - 08/11/22 3:00 pm Cathy Oh M.D. [Primary Care Provider] - Diet: Regular Addtl Attending Provider Instructions: Please take all medications as prescribed and keep all follow-ups as scheduled. Please call our office at [phone] with any questions, concerns or need to reschedule appointments for any reason. We are happy to assist you. You can STOP your Tamsulosin. Please HOLD your aspirin for 1 week, then okay to resume. Tips for your recovery at home: Dont be alarmed by brownish or reddish blood or clots in your urine. This is a result of the procedure. This may occur off and on for weeks to months after the procedure but should continue to improve. Drink plenty of fluids during the day (enough to keep your urine very light colored). This will help keep a healthy flow of urine. Do not lift >25 lbs until your followup Avoid constipation. Please use a stool softener (Colace) for the first two weeks after your procedure Be sure to finish the antibiotics as prescribed. If you go home with a catheter, please wash tubing where it enters your body twice daily with mild soap (Dove or Dial). Once your catheter is removed, expect some blood in your urine and some burning when you urinate. You should have an appointment to have this removed, if you do not please call our office to arrange. Pending Studies at Discharge: Yes (pathology) Stand-Alone Forms: My [employer], Smoking Cessation Medications and DC Order Prescriptions: New ciprofloxacin HCl 500 mg tablet 500 mg PO BID 3 Days Qty: 6 0RF Continued multivitamin Tablet 1 tab PO QAM atorvastatin [Lipitor] 20 mg Tablet 20 mg PO QAM aspirin [Carmen Low Dose Aspirin] 81 mg Tablet,Delayed Release (Dr/Ec) 81 mg PO QAM naproxen sodium [Aleve] 220 mg Tablet 220 mg PO BID PRN (Reason: Pain) coenzyme Q10 [CoQ-10] 100 mg Capsule 100 mg PO QAM omega 5-tzd-cyc-fish oil [Fish Oil] 1,000 mg (120 mg-180 mg) Capsule 1 cap PO QAM Discontinued tamsulosin [Flomax] 0.4 mg capsule 0.4 mg PO BID Qty: 180 3RF Discharge Orders: Discharge Order (Routine); Ordered 05/19/22 Ordered By: Libby Rdz Admission Data Admit Date/Time: 05/18/22 15:00 Attending Provider: Cal Ovalle Admit Provider: Cal Ovalle Primary Care Provider: Cathy Oh Other Interventions: Discharge Summary Assessment (RN) Last Done: 05/19/22 11:54 Coding Level of Care Code D/C DAY MANAGEMENT <30 MINS Diagnoses Benign localized prostatic hyperplasia with lower urinary tract symptoms (LUTS) N40.1
== END 2022-05-19 12:24 | disposition home or self-care (01) ==
LOC: PACUINP 11:58 → ASU 11:58 → 3W 18:04